=== PATIENT | female | born 1975 ===

== ENCOUNTER 2021-01-15 14:03 | Emergency (ER) | payer BC ==
[2021-01-15] MEDS ORDERED: Albuterol/Ipratropium 3.0-0.5 MG/3 ML Neb Soln NEB ONE ×3 (14:15→17:14)
[2021-01-15] MEDS ORDERED: Dexamethasone 10 MG/ML SDV IVPUSH ONE (14:15)
[2021-01-15] MEDS ORDERED: Sodium Chloride 0.9% 2.5 ML Syringe FLUSH PRN (14:15)
[2021-01-15] MEDS ORDERED: Sodium Chloride 0.9% 10 ML Syringe FLUSH PRN (14:15)
[2021-01-15 15:13] LABS: BLOOD UREA NITROGEN,BUN 7 mg/dL (7.0-18.0); CARBON DIOXIDE,CO2 26.3 mmol/L (21.0-32.0); CHLORIDE,CL 104 mmol/L (98-107); GLUCOSE RANDOM 102 mg/dL (74-106); SODIUM,NA 140 mmol/L (136-145)
[2021-01-15 15:19] LABS: CORONAVIRUS COVID-19 NAA NEGATIVE (NEGATIVE); INFLUENZA A NAA NEGATIVE (NEGATIVE); INFLUENZA B NAA NEGATIVE (NEGATIVE)
[2021-01-15] MEDS ORDERED: Azithromycin 250 MG Tab PO ONE (15:51)
--- NOTE | 2021-01-15 19:14 | CR ---
INDICATION: Cough with shortness of breath. TECHNIQUE: Chest 1 view. COMPARISON: None FINDINGS: Cardiovascular and mediastinum: Heart size and vasculature are normal in caliber and appearance. Mediastinum is within normal limits. Lungs and pleural space: Lungs are clear. No sign of infiltrate or mass. No sign of pleural effusion. No pneumothorax. Bones and soft tissues: No significant findings. IMPRESSION: Unremarkable chest. Dictated by Garry Knapp MD @ 01/15/2021 7:13:20 PM (Electronically Signed)
== END 2021-01-15 17:55 | disposition home or self-care (01) ==
LOC: MW.ED 14:03
DX: J45.901 Unspecified asthma with (acute) exacerbation (principal); J06.9 Acute upper respiratory infection, unspecified; Z20.822 Contact with and (suspected) exposure to COVID-19
CPT/HCPCS: 0240U; 36415; 71045; 80053; 84484; 85025; 85379; 93005; 96374; 99285; A9270; J1100; J7620-GY